=== PATIENT | female | born 1995 | race Caucasian/White ===

== ENCOUNTER 2016-07-03 16:16 | Inpatient (IN) ==
[2016-07-03] MEDS ORDERED: STADOL IV PRN ×3 (22:42)
[2016-07-03] MEDS ORDERED: REGLAN PO ONE (22:42)
[2016-07-03] MEDS ORDERED: KEFZOL 1 GM/D5W 50 ML IV PRN (22:42)
[2016-07-03] MEDS ORDERED: PEPCID PO PRN (22:42)
[2016-07-03] MEDS ORDERED: PEPCID IV PRN (22:42)
[2016-07-03] MEDS ORDERED: BRETHINE SUBQ PRN (22:42)
[2016-07-03] MEDS ORDERED: PEPCID PO ONE (22:42)
[2016-07-03] MEDS ORDERED: ZOFRAN IV PRN (22:42)
[2016-07-03] MEDS ORDERED: AMBIEN PO PRN (22:42)
[2016-07-03] MEDS ORDERED: TYLENOL PO PRN (22:42)
[2016-07-03] MEDS ORDERED: PITOCIN 30 UNITS/LR 500 ML ONE (23:42)
[2016-07-03] MEDS: LR 1,000 ML IV SCH (23:55)
[2016-07-04 00:42] LABS: MANUAL DIFF NEEDED? NO
[2016-07-04 00:42] LABS: URINE SOURCE VOIDED
[2016-07-04 00:53] LABS: BASO% 0.2 % (0.0-0.8); EOS# 0.03 X1000 (0.0-0.7); EOS% 0.3 % (0.0-10.0); HEMATOCRIT 37.9 % (37.0-47.0); HEMOGLOBIN 11.6 g/dL (12.0-16.0); IMM GRAN# 0.05 X1000 (0.0-0.04); IMM GRAN% 0.4 % (0.0-0.5); LYMPH# 3.22 X1000 (1.2-3.4); LYMPH% 28.3 % (20.5-51.1); MCH 24.8 PG (27-31); MCHC 30.6 g/dL (33-37); MCV 81.2 FL (81-99); MONO# 1.05 X1000 (0.11-0.59); MONO% 9.2 % (1.7-9.3); NEUT% 61.6 % (42.2-75.2); PLT 193 X1000 (130-400); RBC 4.67 XMIL (4.2-5.4)
[2016-07-04 01:11] LABS: BILIRUBIN URINE NEGATIVE (NEGATIVE); BLOOD URINE 4+ (NEGATIVE); CLARITY SL. CLOUDY (CLEAR); COLOR YELLOW; GLUCOSE URINE NEGATIVE (NEGATIVE); LEUKOCYTES URINE 1+ (NEGATIVE); NITRITE URINE NEGATIVE (NEGATIVE); PROTEIN URINE TRACE mg/dL (NEGATIVE); SP GRAVITY URINE 1.015; UROBILINOGEN URINE NORMAL
[2016-07-04] MEDS ORDERED: CYTOTEC PO ONE (02:00)
[2016-07-04] MEDS ORDERED: FENTANYL-BUPIV-NS 2 MCG-0.1% 200 ML EPIDURAL SCH (06:00)
[2016-07-04] MEDS ORDERED: PITOCIN 30 UNITS/LR 500 ML IV SCH (07:00)
[2016-07-04] MEDS: LR 1,000 ML IV SCH ×2 (07:10→07:53)
[2016-07-04] MEDS ORDERED: XYLOCAINE-MPF 1% ONE (09:34)
[2016-07-04] MEDS ORDERED: MINERAL OIL ONE (09:34)
[2016-07-04] MEDS ORDERED: M-M-R II VACCINE SUBQ ONE (17:24)
[2016-07-04] MEDS ORDERED: MOTRIN PO PRN (17:24)
[2016-07-04] MEDS ORDERED: AMBIEN PO PRN (17:24)
[2016-07-04] MEDS ORDERED: CYTOTEC PO PRN (17:24)
[2016-07-04] MEDS ORDERED: PERCOCET-10 PO PRN (17:24)
[2016-07-04] MEDS ORDERED: NORCO-10 PO PRN (17:24)
[2016-07-04] MEDS ORDERED: HYDROXYZINE PO PRN (17:24)
[2016-07-04] MEDS ORDERED: HYDROXYZINE IM PRN (17:24)
[2016-07-04] MEDS ORDERED: PERCOCET-5 PO PRN (17:24)
[2016-07-04] MEDS ORDERED: NORCO-5 PO PRN (17:24)
[2016-07-04] MEDS ORDERED: XYLOCAINE-MPF 1% INJ PRN (17:24)
[2016-07-04] MEDS ORDERED: BENADRYL PO PRN (17:24)
[2016-07-04] MEDS ORDERED: PITOCIN 30 UNITS/LR 500 ML IV ONE (17:24)
[2016-07-04] MEDS ORDERED: MINERAL OIL MISC PRN (17:24)
[2016-07-04] MEDS ORDERED: BOOSTRIX VACCINE IM ONE (17:24)
[2016-07-04] MEDS ORDERED: PERI MEDS (DERMOPLAST/NUPERCAINAL/TUCKS) MISC PRN (17:24)
[2016-07-04] MEDS ORDERED: BENADRYL IV PRN (17:24)
[2016-07-04] MEDS ORDERED: PITOCIN IM PRN (17:24)
[2016-07-04] MEDS ORDERED: PITOCIN 20 UNITS/LR 1,000 ML IV SCH (17:30)
--- NOTE | 2016-07-04 17:49 | OPERATIVE NOTE ---
PROCEDURE DATE: 07/04/2016 DELIVERING PHYSICIAN: Dr. Payne. TYPE DELIVERY: Spontaneous controlled vaginal delivery. ANESTHESIA: Epidural. FINDINGS: At 1702 a 10 pound 2 ounce male was delivered in occiput anterior presentation. Apgars of 9 at 1 minute and 10 at 5 minutes. SUMMARY: Yoli Walsh is a 21-year-old primigravida who is at 39-1/2 weeks gestation. Her blood type is A negative. Rubella nonimmune. Hepatitis B, antigen group B strep are negative. She did have gestational diabetes that was diet controlled. Her last ultrasound at 36 weeks gave an estimated weight of 3314 g. This was 78 percentile growth. She was seen in the office yesterday and found to be dilated 3-4 cm. She was therefore brought in to Labor and Delivery and received a single dose of Cytotec last night. This morning we ruptured membranes with really scant fluid. IV Pitocin was begun. An epidural was placed for labor pain management and was following progressive labor without signs of stress or dystocia. She became complete and began pushing and very quickly crowned. At that point she was placed in dorsal lithotomy position. Perineum was prepped and draped in usual fashion. A midline episiotomy was performed and spontaneous controlled vaginal delivery occurred. Once the infant's head was delivered the oropharynx was bulb suctioned. The shoulders and body were delivered without dystocia or excessive traction. Cord was clamped and cut. was handed to the nurses for further care and evaluation. Cord blood was obtained. Placenta was spontaneously delivered and was intact. The second-degree midline episiotomy was repaired in layers using 2-0 Vicryl suture. Blood loss approximately 200 mL. There no complications. The patient remained in the LDR recovering without difficulty.
[2016-07-04] MEDS: PERICOLACE PO SCH (19:54)
[2016-07-05] MEDS: PERICOLACE PO SCH (00:57)
[2016-07-05 06:00] LABS: HEMATOCRIT 34.8 % (37.0-47.0); HEMOGLOBIN 10.8 g/dL (12.0-16.0); MCH 25.1 PG (27-31); MCV 80.7 FL (81-99); RBC 4.31 XMIL (4.2-5.4)
[2016-07-05 08:37] VITALS: BP 129/87
[2016-07-05] MEDS ORDERED: PRECARE PO SCH (09:00)
[2016-07-05] MEDS ORDERED: FLUZONE QUAD 2016-2017 SYRINGE IM ONE (09:51)
== END 2016-07-05 11:50 | disposition home or self-care (01) | DRG 775 ==
LOC: P.LD 22:00
PROVIDERS: ADMIT Obstetrics & Gynecology; ATTEND Obstetrics & Gynecology
PROC: 10E0XZZ Delivery of Products of Conception, External Approach (ICD-10-PCS; 2016-07-04)
PROC: 10907ZC Drainage of Amniotic Fluid, Therapeutic from Products of Conception, Via Natural or Artificial Opening (ICD-10-PCS; 2016-07-04)
PROC: 3E033VJ Introduction of Other Hormone into Peripheral Vein, Percutaneous Approach (ICD-10-PCS; 2016-07-04)
PROC: 0W8NXZZ Division of Female Perineum, External Approach (ICD-10-PCS; principal; 2016-07-04 08:00)
PROC: 3E0234Z Introduction of Serum, Toxoid and Vaccine into Muscle, Percutaneous Approach (ICD-10-PCS; 2016-07-05)
DX: O24.420 Gestational diabetes mellitus in childbirth, diet controlled (principal); O26.893 Other specified pregnancy related conditions, third trimester; Z37.0 Single live birth; Z67.11 Type A blood, Rh negative; Z3A.39 39 weeks gestation of pregnancy; Z23 Encounter for immunization
CPT/HCPCS: 59025; 81003; 85025; 85027; 85461; 86592; 86900; 86901; 90707; J2590; J2790; J7120; Q2038